=== PATIENT | male | born 1965 | race Caucasian/White ===

== ENCOUNTER 2021-04-03 00:37 | Inpatient (IN) | payer BC, OTHER ==
[~2021-04-03] VITALS: Ht 165.1 cm; Wt 59.9 kg
[~2021-04-03 00:37] MED LIST: IBUP-2437 PO; TAMS-11 PO
[2021-04-03] MEDS ORDERED: METOCLOPRAMIDE HCL 10MG/2ML VIAL IV ONE (01:30)
[2021-04-03] MEDS ORDERED: SODIUM CHLORIDE 0.9% 1000ML BAG (SEPSIS BOLUS) IV ONE (01:30)
[2021-04-03] MEDS ORDERED: PIPERACILLIN/TAZ 3.375G PREMIX 50 ML IV ONE (02:30)
[2021-04-03] MEDS ORDERED: VANCOMYCIN 1 G PREMIX 200 ML IV ONE (02:30)
[2021-04-03 03:10] LABS: CHLORIDE 108 mEq/L (98-107)
[2021-04-03] MEDS ORDERED: NOREPINEPHRINE 8MG/250ML PMX 250 ML IV STA (03:37)
[2021-04-03] MEDS: NOREPINEPHRINE 8 MG in DEXTROSE 5% WATER 250 ML IV PRN ×2 (04:06→18:23)
[2021-04-03 04:47] LABS: BASOPHILS % 0.2 % (0.0-2.0); EOSINOPHILS % 0.3 % (0.0-5.0); LYMPHOCYTES % 12.5 % (20.0-50.0); MEAN CORPUSCULAR HEMOGLOBIN 29.4 pg (28.0-32.0); MEAN CORPUSCULAR VOLUME 93.1 fL (80.0-94.0); MEAN PLATELET VOLUME 7.5 fl (7.4-10.4); MONOCYTES % 11.3 % (2.0-8.0); NEUTROPHILS % 75.7 % (40.0-76.0); PLATELET 109 x1000/uL (130-400); RED BLOOD CELL COUNT 2.22 mill/uL (4.7-6.1); RED CELL DISTRIBUTION WIDTH 21.8 % (11.6-14.6)
[2021-04-03 04:51] LABS: HEMATOCRIT. 20.7 % (42.0-52.0); HEMOGLOBIN. 6.5 g/dL (14.0-18.0)
[2021-04-03 04:57] LABS: INR 1.2; PROTHROMBIN TIME 12.4 sec (9.6-11.0)
[2021-04-03] MEDS ORDERED: IOHEXOL-350 100 ML BOTTLE ONE (06:27)
[2021-04-03] MEDS ORDERED: CLONIDINE 0.1MG TABLET PO PRN (07:30)
[2021-04-03] MEDS ORDERED: MAGNESIUM/ALUMINUM HYDROXIDE/SIMETHICONE 30ML UDC PO PRN (07:30)
[2021-04-03] MEDS ORDERED: GUAIFENESIN 200MG/10ML SUGAR FREE UDC PO PRN (07:30)
[2021-04-03] MEDS ORDERED: KETOROLAC 15MG/ML VIAL IV PRN (07:30)
[2021-04-03] MEDS ORDERED: NITROGLYCERIN 0.4MG TABLET SL SL PRN (07:30)
[2021-04-03] MEDS ORDERED: ACETAMINOPHEN 325MG TABLET PO PRN (07:30)
[2021-04-03] MEDS ORDERED: TRAMADOL 50MG TABLET PO PRN (07:30)
[2021-04-03] MEDS ORDERED: DOCUSATE SODIUM 100MG CAPSULE PO PRN (07:30)
[2021-04-03] MEDS ORDERED: ZOLPIDEM TARTRATE 5MG TABLET PO PRN (07:30)
[2021-04-03] MEDS ORDERED: IPRATROPIUM/ALBUTEROL 0.5-3(2.5)MG/3ML NEB NEB PRN (07:30)
[2021-04-03] MEDS ORDERED: NOREPINEPHRINE 8 MG in DEXT 5% WATER 242 ML IV PRN ×2 (07:30→12:00)
[2021-04-03] MEDS ORDERED: NALOXONE HCL 0.4MG/ML VIAL IV PRN (08:45)
[2021-04-03] MEDS ORDERED: VANCOMYCIN 1 G PREMIX 200 ML IV SCH (09:00)
[2021-04-03] MEDS: MORPHINE SULFATE 2 MG/ML CPJ (NOT FOR IM USE) IV PRN ×3 (09:24→20:01)
[2021-04-03] MEDS: PANTOPRAZOLE SODIUM 40 MG/VIAL IV SCH (09:55)
[2021-04-03] MEDS ORDERED: IPRATROPIUM/ALBUTEROL 0.5-3(2.5)MG/3ML NEB HHN PRN (11:15)
[2021-04-03] MEDS ORDERED: PIPERACILLIN/TAZ 3.375G PREMIX 50 ML IV SCH (14:00)
[2021-04-03 14:13] LABS: HEMATOCRIT 23.5 % (42.0-52.0); HEMOGLOBIN 7.6 g/dL (14.0-18.0)
[2021-04-03 15:55] LABS: CLARITY URINE CLEAR (CLEAR); COLOR URINE YELLOW (YELLOW); KETONES URINE NEGATIVE (NEGATIVE); LEUKOCYTE ESTERASE URINE NEGATIVE (NEGATIVE); NITRITE URINE NEGATIVE (NEGATIVE); OCCULT BLOOD URINE NEGATIVE (NEGATIVE); PH URINE 5.5 (4.5-8.0); PROTEIN URINE NEGATIVE (NEGATIVE); SPECIFIC GRAVITY URINE 1.057 (1.005-1.030); UROBILINOGEN URINE 0.2 E.U./dL (0.2-1.0)
[2021-04-03] MEDS: MEROPENEM 1,000 MG in SODIUM CHLORIDE 0.9% 100 ML IV SCH ×2 (16:27→20:00)
[2021-04-03] MEDS: VANCOMYCIN 1 G PREMIX 200 ML IV SCH (18:00)
[2021-04-03 23:26] LABS: CREATINE KINASE MB FRACTION 3.7 ng/mL (0.5-3.6)
[2021-04-04] MEDS: MORPHINE SULFATE 2 MG/ML CPJ (NOT FOR IM USE) IV PRN ×2 (00:23→04:37)
[2021-04-04] MEDS: MEROPENEM 1,000 MG in SODIUM CHLORIDE 0.9% 100 ML IV SCH ×3 (06:49→20:19)
[2021-04-04] MEDS ORDERED: VECURONIUM BROMIDE 10 MG/VIAL IV ONE ×3 (09:15→12:15)
[2021-04-04] MEDS ORDERED: ETOMIDATE 2MG/ML 10ML VIAL IV ONE ×2 (09:15→10:00)
[2021-04-04] MEDS ORDERED: SODIUM CHLORIDE 0.9% 10ML VIAL ONE (09:15)
[2021-04-04] MEDS ORDERED: MIDAZOLAM 100MG/100ML PREMIX IV PRN (10:00)
[2021-04-04] MEDS ORDERED: MIDAZOLAM HCL 100 MG in DEXT 5% WATER 80 ML IV ONE (10:00)
[2021-04-04 10:25] LABS: BG BASE EXCESS -14.5 mmol/L (-2.0-2.0); BG DEOXYHEMOGLOBIN 0.7 % (0.0-5.0); BG METHEMOGLOBIN 0.7 % (0.0-1.5); BG OXYGEN SATURATION 99.3 % (92.0-98.5); BG OXYHEMOGLOBIN 98.6 % (94.0-97.0); BG PCO2 24.3 mmHg (35.0-45.0); BG PH 7.274 (7.350-7.450); BG PO2 414.3 mmHg (75.0-100.0); BG SAMPLE SITE RIGHT BRACHIAL; BG VENT MODE RESUS BAG
[2021-04-04] MEDS ORDERED: SODIUM BICARBONATE 8.4% 1 MEQ/ML 50ML SYR IV ONE (10:30)
[2021-04-04] MEDS: PANTOPRAZOLE SODIUM 40 MG/VIAL IV SCH (12:20)
[2021-04-04] MEDS: VANCOMYCIN 1 G PREMIX 200 ML IV SCH (12:20)
[2021-04-04] MEDS: DEXT 5%/0.45% NACL 1000ML 1,000 ML IV SCH (12:22)
[2021-04-04 12:30] LABS: BG BASE EXCESS -8.9 mmol/L (-2.0-2.0); BG CARBOXYHEMOGLOBIN 0.3 % (0.5-1.5); BG HCO3 ACT 15.3 mmol/L (22.0-26.0); BG METHEMOGLOBIN 0.6 % (0.0-1.5); BG OXYHEMOGLOBIN 98.1 % (94.0-97.0); BG PCO2 29.9 mmHg (35.0-45.0); BG PH 7.327 (7.350-7.450); BG PO2 151.3 mmHg (75.0-100.0); BG SAMPLE SITE RIGHT BRACHIAL; BG TOTAL HEMOGLOBIN 18.5 g/dL (12.0-18.0); BG VENT MODE VENT - AC
[2021-04-04] MEDS ORDERED: OCTREOTIDE 1,000 MCG in SODIUM CHLORIDE 0.9% 100 ML IV ONE (16:00)
[2021-04-04] MEDS ORDERED: OCTREOTIDE ACETATE 50 MCG/ML 1ML IV ONE (16:00)
[2021-04-04] MEDS: PANTOPRAZOLE 80 MG in SODIUM CHLORIDE 0.9% 100 ML IV SCH ×2 (16:22→23:49)
[2021-04-04 16:43] LABS: BASOPHILS % 0.3 % (0.0-2.0); EOSINOPHILS % 0.3 % (0.0-5.0); HEMATOCRIT. 26.9 % (42.0-52.0); HEMOGLOBIN. 8.4 g/dL (14.0-18.0); LYMPHOCYTES % 16.1 % (20.0-50.0); MEAN CORPUSCULAR VOLUME 93.2 fL (80.0-94.0); MEAN PLATELET VOLUME 7.9 fl (7.4-10.4); MONOCYTES % 10.1 % (2.0-8.0); NEUTROPHILS % 73.2 % (40.0-76.0); RED BLOOD CELL COUNT 2.88 mill/uL (4.7-6.1); RED CELL DISTRIBUTION WIDTH 15.6 % (11.6-14.6)
[2021-04-04 16:47] LABS: CHLORIDE 104 mEq/L (98-107)
[2021-04-04 17:22] LABS: PLATELET 32 x1000/uL (130-400)
[2021-04-05] VITALS (15 sets, daily range): BP systolic 82–114; BP diastolic 40–80
[2021-04-05 01:39] LABS: HEMATOCRIT 26.3 % (42.0-52.0); HEMOGLOBIN 8.9 g/dL (14.0-18.0)
[2021-04-05] MEDS: VANCOMYCIN 1 G PREMIX 200 ML IV SCH (01:45)
[2021-04-05] MEDS: DEXT 5%/0.45% NACL 1000ML 1,000 ML IV SCH ×2 (03:17→16:51)
[2021-04-05] MEDS ORDERED: MIDAZOLAM HCL 100 MG in SODIUM CHLORIDE 0.9% 100 ML IV PRN (04:45)
[2021-04-05] MEDS: MEROPENEM 1,000 MG in SODIUM CHLORIDE 0.9% 100 ML IV SCH (07:19)
[2021-04-05] MEDS: MORPHINE SULFATE 2 MG/ML CPJ (NOT FOR IM USE) IV PRN (08:09)
[2021-04-05 08:29] LABS: BG BASE EXCESS -1.4 mmol/L (-2.0-2.0); BG DEOXYHEMOGLOBIN 1.5 % (0.0-5.0); BG HCO3 ACT 20.8 mmol/L (22.0-26.0); BG METHEMOGLOBIN 0.4 % (0.0-1.5); BG OXYGEN SATURATION 98.5 % (92.0-98.5); BG OXYHEMOGLOBIN 98.1 % (94.0-97.0); BG PCO2 27.8 mmHg (35.0-45.0); BG PH 7.492 (7.350-7.450); BG PO2 137.4 mmHg (75.0-100.0); BG SAMPLE SITE RIGHT RADIAL; BG VENT MODE VENT - AC
[2021-04-05] MEDS ORDERED: SODIUM BICARBONATE 8.4% 1 MEQ/ML 50ML SYR IV NR (09:30)
[2021-04-05] MEDS: PANTOPRAZOLE 80 MG in SODIUM CHLORIDE 0.9% 100 ML IV SCH ×2 (10:00→20:00)
[2021-04-05] MEDS ORDERED: PANTOPRAZOLE SODIUM 40 MG/VIAL IV ONE (10:39)
[2021-04-05] MEDS ORDERED: FENTANYL CITRATE/PF 2,500 MCG in SODIUM CHLORIDE 0.9% 200 ML IV PRN (12:30)
[2021-04-05] MEDS: FENTANYL CITRATE/PF 2,500 MCG in SODIUM CHLORIDE 0.9% 200 ML IV PRN (13:00)
[2021-04-05] MEDS: NOREPINEPHRINE 32 MG in DEXT 5% WATER 218 ML IV PRN (13:10)
[2021-04-05] MEDS ORDERED: VANCOMYCIN 1 G PREMIX 200 ML IV SCH (14:00)
[2021-04-05] MEDS ORDERED: VANCOMYCIN 750 MG PREMIX 150 ML IV SCH ×2 (14:00→22:30)
[2021-04-05 15:56] LABS: HEMATOCRIT 32.5 % (42.0-52.0)
[2021-04-05] MEDS: VASOPRESSIN 20 UNIT in SODIUM CHLORIDE 0.9% 99 ML IV PRN ×2 (16:15→23:04)
[2021-04-06] VITALS (88 sets, daily range): BP systolic 72–128; BP diastolic 46–94
[2021-04-06] MEDS: VASOPRESSIN 20 UNIT in SODIUM CHLORIDE 0.9% 99 ML IV PRN ×3 (02:00→16:21)
[2021-04-06] MEDS: MEROPENEM 1,000 MG in SODIUM CHLORIDE 0.9% 100 ML IV SCH ×4 (02:05→22:19)
[2021-04-06] MEDS: NOREPINEPHRINE 32 MG in DEXT 5% WATER 218 ML IV PRN ×3 (02:27→23:39)
[2021-04-06 02:44] LABS: BG BASE EXCESS -4.7 mmol/L (-2.0-2.0); BG CARBOXYHEMOGLOBIN 0.1 % (0.5-1.5); BG DEOXYHEMOGLOBIN 17.7 % (0.0-5.0); BG FRACTION INSPIRED OXYGEN 80; BG HCO3 ACT 20.1 mmol/L (22.0-26.0); BG METHEMOGLOBIN 0.3 % (0.0-1.5); BG OXYGEN SATURATION 82.2 % (92.0-98.5); BG OXYHEMOGLOBIN 81.9 % (94.0-97.0); BG PCO2 36.3 mmHg (35.0-45.0); BG PH 7.361 (7.350-7.450); BG PO2 49.3 mmHg (75.0-100.0); BG SAMPLE SITE RIGHT FEMORAL; BG TOTAL HEMOGLOBIN 11.9 g/dL (12.0-18.0); BG VENT MODE VENT - AC
[2021-04-06] MEDS ORDERED: MIDAZOLAM HCL 100 MG in SODIUM CHLORIDE 0.9% 80 ML IV PRN (05:45)
[2021-04-06] MEDS: PANTOPRAZOLE 80 MG in SODIUM CHLORIDE 0.9% 100 ML IV SCH ×2 (05:52→16:22)
[2021-04-06 06:14] LABS: BASOPHILS % 0.2 % (0.0-2.0); EOSINOPHILS % 0.1 % (0.0-5.0); HEMATOCRIT. 34.8 % (42.0-52.0); HEMOGLOBIN. 11.5 g/dL (14.0-18.0); LYMPHOCYTES % 15.1 % (20.0-50.0); MEAN CORPUSCULAR HEMOGLOBIN 30.2 pg (28.0-32.0); MEAN CORPUSCULAR VOLUME 91.6 fL (80.0-94.0); MEAN PLATELET VOLUME 9.3 fl (7.4-10.4); MONOCYTES % 7.3 % (2.0-8.0); NEUTROPHILS % 77.3 % (40.0-76.0); PLATELET 67 x1000/uL (130-400); RED CELL DISTRIBUTION WIDTH 15.1 % (11.6-14.6)
[2021-04-06 06:21] LABS: CHLORIDE 97 mEq/L (98-107)
[2021-04-06 06:27] LABS: PHOSPHORUS 4.9 mg/dL (2.5-4.9)
[2021-04-06] MEDS ORDERED: LIDOCAINE HCL 1% 30ML VIAL (10MG/ML) ONE (08:20)
[2021-04-06] MEDS: DEXT 5%/0.45% NACL 1000ML 1,000 ML IV SCH (08:25)
[2021-04-06 08:50] LABS: BG BASE EXCESS -5.1 mmol/L (-2.0-2.0); BG CARBOXYHEMOGLOBIN 0.3 % (0.5-1.5); BG DEOXYHEMOGLOBIN 0.6 % (0.0-5.0); BG FRACTION INSPIRED OXYGEN 100; BG HCO3 ACT 19.1 mmol/L (22.0-26.0); BG METHEMOGLOBIN 0.4 % (0.0-1.5); BG OXYGEN SATURATION 99.4 % (92.0-98.5); BG OXYHEMOGLOBIN 98.7 % (94.0-97.0); BG PCO2 32.9 mmHg (35.0-45.0); BG PH 7.381 (7.350-7.450); BG PO2 320.7 mmHg (75.0-100.0); BG SAMPLE SITE LEFT BRACHIAL; BG TOTAL HEMOGLOBIN 12.4 g/dL (12.0-18.0); BG VENT MODE VENT - AC
[2021-04-06] MEDS ORDERED: SODIUM BICARBONATE 8.4% 1 MEQ/ML 50ML SYR IV NR (09:30)
[2021-04-06] MEDS: DEXT 5%/0.9% NACL 1,000 ML IV SCH (10:52)
[2021-04-06] MEDS ORDERED: SODIUM POLYSTYRENE SULFONATE 15 G/60 ML BOT PO NR (11:00)
[2021-04-06] MEDS: CALCIUM GLUCONATE 1GM PREMIX 100 ML IV SCH ×2 (12:49→22:20)
[2021-04-06] MEDS: FENTANYL CITRATE/PF 2,500 MCG in SODIUM CHLORIDE 0.9% 200 ML IV PRN (12:49)
[2021-04-06] MEDS ORDERED: MAGNESIUM 2 G PREMIX 50 ML IV NR (13:00)
[2021-04-06 16:43] LABS: HEMATOCRIT 35.9 % (42.0-52.0); HEMOGLOBIN 11.8 g/dL (14.0-18.0)
[2021-04-06] MEDS: PHENYLEPHRINE 100 MG in DEXT 5% WATER 240 ML IV PRN (18:10)
[2021-04-06] MEDS: IPRATROPIUM/ALBUTEROL 0.5-3(2.5)MG/3ML NEB HHN SCH (20:43)
[2021-04-07] VITALS (95 sets, daily range): BP systolic 74–121; BP diastolic 48–85
[2021-04-07 00:57] LABS: HEMATOCRIT 33.8 % (42.0-52.0); HEMOGLOBIN 11.1 g/dL (14.0-18.0)
[2021-04-07] MEDS: DEXT 5%/0.9% NACL 1,000 ML IV SCH ×3 (01:15→13:42)
[2021-04-07] MEDS: VASOPRESSIN 20 UNIT in SODIUM CHLORIDE 0.9% 99 ML IV PRN (01:16)
[2021-04-07] MEDS: IPRATROPIUM/ALBUTEROL 0.5-3(2.5)MG/3ML NEB HHN SCH ×4 (02:25→20:29)
[2021-04-07] MEDS: PANTOPRAZOLE 80 MG in SODIUM CHLORIDE 0.9% 100 ML IV SCH ×3 (05:48→22:06)
[2021-04-07] MEDS: MEROPENEM 1,000 MG in SODIUM CHLORIDE 0.9% 100 ML IV SCH ×3 (05:49→22:05)
[2021-04-07] MEDS: VANCOMYCIN 750 MG PREMIX 150 ML IV SCH (05:49)
[2021-04-07 05:59] LABS: BASOPHILS % 0.1 % (0.0-2.0); EOSINOPHILS % 0.5 % (0.0-5.0); HEMATOCRIT. 32.1 % (42.0-52.0); HEMOGLOBIN. 10.8 g/dL (14.0-18.0); LYMPHOCYTES % 12.3 % (20.0-50.0); MEAN CORPUSCULAR HEMOGLOBIN 30.2 pg (28.0-32.0); MEAN CORPUSCULAR VOLUME 89.8 fL (80.0-94.0); MEAN PLATELET VOLUME 8.6 fl (7.4-10.4); MONOCYTES % 9.2 % (2.0-8.0); NEUTROPHILS % 77.9 % (40.0-76.0); PLATELET 61 x1000/uL (130-400); RED BLOOD CELL COUNT 3.57 mill/uL (4.7-6.1); RED CELL DISTRIBUTION WIDTH 14.8 % (11.6-14.6)
[2021-04-07 06:14] LABS: CHLORIDE 101 mEq/L (98-107)
[2021-04-07 06:22] LABS: PHOSPHORUS 3.6 mg/dL (2.5-4.9)
[2021-04-07 08:38] LABS: BG BASE EXCESS -3.7 mmol/L (-2.0-2.0); BG CARBOXYHEMOGLOBIN 0.3 % (0.5-1.5); BG FRACTION INSPIRED OXYGEN 40; BG HCO3 ACT 19.7 mmol/L (22.0-26.0); BG METHEMOGLOBIN 0.3 % (0.0-1.5); BG OXYHEMOGLOBIN 98.4 % (94.0-97.0); BG PCO2 30.6 mmHg (35.0-45.0); BG PH 7.427 (7.350-7.450); BG PO2 165.8 mmHg (75.0-100.0); BG SAMPLE SITE RIGHT RADIAL; BG TOTAL HEMOGLOBIN 11.5 g/dL (12.0-18.0); BG VENT MODE VENT - AC
[2021-04-07] MEDS: CALCIUM GLUCONATE 1GM PREMIX 100 ML IV SCH ×2 (08:47→21:11)
[2021-04-07] MEDS: NOREPINEPHRINE 32 MG in DEXT 5% WATER 218 ML IV PRN (10:35)
[2021-04-07 15:26] LABS: HEMATOCRIT 30.9 % (42.0-52.0); HEMOGLOBIN 10.5 g/dL (14.0-18.0)
[2021-04-07 16:55] LABS: BG BASE EXCESS -4.9 mmol/L (-2.0-2.0); BG CARBOXYHEMOGLOBIN 0.3 % (0.5-1.5); BG DEOXYHEMOGLOBIN 7.7 % (0.0-5.0); BG HCO3 ACT 21.1 mmol/L (22.0-26.0); BG METHEMOGLOBIN 0.2 % (0.0-1.5); BG OXYGEN SATURATION 92.3 % (92.0-98.5); BG OXYHEMOGLOBIN 91.8 % (94.0-97.0); BG PCO2 42.4 mmHg (35.0-45.0); BG PH 7.314 (7.350-7.450); BG PO2 70.9 mmHg (75.0-100.0); BG SAMPLE SITE RIGHT RADIAL; BG TOTAL HEMOGLOBIN 11.5 g/dL (12.0-18.0); BG VENT MODE VENT - SIMV
[2021-04-07] MEDS: PHENYLEPHRINE 100 MG in DEXT 5% WATER 240 ML IV PRN (16:55)
[2021-04-07] MEDS: FENTANYL CITRATE/PF 2,500 MCG in SODIUM CHLORIDE 0.9% 200 ML IV PRN (16:56)
[2021-04-07] MEDS: FLUCONAZOLE 200 MG/100ML BAG 100 ML IV SCH (18:14)
[2021-04-07 23:22] LABS: HEMATOCRIT 32.1 % (42.0-52.0); HEMOGLOBIN 10.5 g/dL (14.0-18.0)
[2021-04-08] VITALS (85 sets, daily range): BP systolic 76–132; BP diastolic 23–102
[2021-04-08] MEDS: IPRATROPIUM/ALBUTEROL 0.5-3(2.5)MG/3ML NEB HHN SCH ×4 (00:28→20:23)
[2021-04-08] MEDS: DEXT 5%/0.9% NACL 1,000 ML IV SCH ×2 (02:02→15:22)
[2021-04-08] MEDS: PHENYLEPHRINE 100 MG in DEXT 5% WATER 240 ML IV PRN ×3 (02:14→21:55)
[2021-04-08] MEDS: MEROPENEM 1,000 MG in SODIUM CHLORIDE 0.9% 100 ML IV SCH ×3 (05:52→22:16)
[2021-04-08] MEDS: VANCOMYCIN 750 MG PREMIX 150 ML IV SCH (05:52)
[2021-04-08 07:16] LABS: BASOPHILS % 0.2 % (0.0-2.0); HEMATOCRIT. 32.5 % (42.0-52.0); HEMOGLOBIN. 10.7 g/dL (14.0-18.0); LYMPHOCYTES % 11.2 % (20.0-50.0); MEAN CORPUSCULAR HEMOGLOBIN 30.2 pg (28.0-32.0); MEAN PLATELET VOLUME 9.1 fl (7.4-10.4); MONOCYTES % 8.4 % (2.0-8.0); NEUTROPHILS % 79.2 % (40.0-76.0); PLATELET 57 x1000/uL (130-400); RED BLOOD CELL COUNT 3.53 mill/uL (4.7-6.1); RED CELL DISTRIBUTION WIDTH 15.3 % (11.6-14.6)
[2021-04-08 07:30] LABS: CHLORIDE 106 mEq/L (98-107)
[2021-04-08 07:42] LABS: PHOSPHORUS 2.6 mg/dL (2.5-4.9)
[2021-04-08] MEDS: NOREPINEPHRINE 32 MG in DEXT 5% WATER 218 ML IV PRN (08:12)
[2021-04-08 08:22] LABS: BG BASE EXCESS -6.1 mmol/L (-2.0-2.0); BG CARBOXYHEMOGLOBIN 0.3 % (0.5-1.5); BG FRACTION INSPIRED OXYGEN 40; BG HCO3 ACT 17.6 mmol/L (22.0-26.0); BG METHEMOGLOBIN 0.4 % (0.0-1.5); BG OXYHEMOGLOBIN 93.3 % (94.0-97.0); BG PCO2 29.2 mmHg (35.0-45.0); BG PH 7.398 (7.350-7.450); BG SAMPLE SITE LEFT BRACHIAL; BG TOTAL HEMOGLOBIN 11.1 g/dL (12.0-18.0); BG VENT MODE VENT - AC
[2021-04-08] MEDS ORDERED: KCL 20MEQ/100ML PREMIX 100 ML IV NR (12:00)
[2021-04-08] MEDS: CALCIUM GLUCONATE 1GM PREMIX 100 ML IV SCH ×2 (12:15→21:44)
[2021-04-08] MEDS: PANTOPRAZOLE 80 MG in SODIUM CHLORIDE 0.9% 100 ML IV SCH ×2 (12:15→21:44)
[2021-04-08 14:38] LABS: HEMATOCRIT 30.8 % (42.0-52.0); HEMOGLOBIN 10.4 g/dL (14.0-18.0)
[2021-04-08] MEDS: LACTULOSE 20G/30ML UDC PO PRN (15:22)
[2021-04-08] MEDS: FLUCONAZOLE 200 MG/100ML BAG 100 ML IV SCH (19:10)
[2021-04-08 23:08] LABS: BG BASE EXCESS -1.9 mmol/L (-2.0-2.0); BG CARBOXYHEMOGLOBIN 0.3 % (0.5-1.5); BG DEOXYHEMOGLOBIN 2.3 % (0.0-5.0); BG FRACTION INSPIRED OXYGEN 40; BG HCO3 ACT 20.8 mmol/L (22.0-26.0); BG METHEMOGLOBIN 0.3 % (0.0-1.5); BG OXYGEN SATURATION 97.7 % (92.0-98.5); BG OXYHEMOGLOBIN 97.1 % (94.0-97.0); BG PCO2 28.8 mmHg (35.0-45.0); BG PH 7.476 (7.350-7.450); BG PO2 104.5 mmHg (75.0-100.0); BG SAMPLE SITE RIGHT RADIAL; BG TOTAL HEMOGLOBIN 10.6 g/dL (12.0-18.0); BG VENT MODE VENT - SIMV
[2021-04-09] VITALS (93 sets, daily range): BP systolic 73–126; BP diastolic 48–88
[2021-04-09] MEDS: IPRATROPIUM/ALBUTEROL 0.5-3(2.5)MG/3ML NEB HHN SCH ×4 (00:12→21:22)
[2021-04-09 01:36] LABS: HEMOGLOBIN 10.1 g/dL (14.0-18.0)
[2021-04-09] MEDS: PANTOPRAZOLE 80 MG in SODIUM CHLORIDE 0.9% 100 ML IV SCH ×2 (04:59→15:19)
[2021-04-09] MEDS: MEROPENEM 1,000 MG in SODIUM CHLORIDE 0.9% 100 ML IV SCH ×3 (06:16→22:08)
[2021-04-09 06:42] LABS: BASOPHILS % 0.1 % (0.0-2.0); EOSINOPHILS % 0.6 % (0.0-5.0); HEMATOCRIT. 29.2 % (42.0-52.0); HEMOGLOBIN. 9.7 g/dL (14.0-18.0); LYMPHOCYTES % 10.9 % (20.0-50.0); MEAN CORPUSCULAR HEMOGLOBIN 30.4 pg (28.0-32.0); MEAN CORPUSCULAR VOLUME 91.2 fL (80.0-94.0); MEAN PLATELET VOLUME 8.9 fl (7.4-10.4); MONOCYTES % 7.9 % (2.0-8.0); NEUTROPHILS % 80.5 % (40.0-76.0); PLATELET 55 x1000/uL (130-400); RED CELL DISTRIBUTION WIDTH 15.8 % (11.6-14.6)
[2021-04-09 07:04] LABS: CHLORIDE 109 mEq/L (98-107)
[2021-04-09 07:10] LABS: PHOSPHORUS 1.6 mg/dL (2.5-4.9)
[2021-04-09 08:02] LABS: BG CARBOXYHEMOGLOBIN 0.3 % (0.5-1.5); BG DEOXYHEMOGLOBIN 1.5 % (0.0-5.0); BG FRACTION INSPIRED OXYGEN 40; BG HCO3 ACT 19.8 mmol/L (22.0-26.0); BG METHEMOGLOBIN 0.5 % (0.0-1.5); BG OXYGEN SATURATION 98.5 % (92.0-98.5); BG OXYHEMOGLOBIN 97.7 % (94.0-97.0); BG PCO2 28.2 mmHg (35.0-45.0); BG PH 7.464 (7.350-7.450); BG PO2 139.9 mmHg (75.0-100.0); BG SAMPLE SITE LEFT RADIAL; BG TOTAL HEMOGLOBIN 10.7 g/dL (12.0-18.0); BG TOTAL RESPIRATORY RATE 15 b/min; BG VENT MODE VENT - SIMV
[2021-04-09] MEDS: PHENYLEPHRINE 100 MG in DEXT 5% WATER 240 ML IV PRN ×2 (08:39→18:28)
[2021-04-09] MEDS: CALCIUM GLUCONATE 1GM PREMIX 100 ML IV SCH ×2 (09:17→21:13)
[2021-04-09] MEDS: DEXT 5%/0.9% NACL 1,000 ML IV SCH (09:49)
[2021-04-09] MEDS: NOREPINEPHRINE 32 MG in DEXT 5% WATER 218 ML IV PRN (10:51)
[2021-04-09] MEDS: LACTULOSE 20G/30ML UDC PO PRN (11:37)
[2021-04-09] MEDS: FENTANYL CITRATE/PF 2,500 MCG in SODIUM CHLORIDE 0.9% 200 ML IV PRN (12:19)
[2021-04-09] MEDS: LACTULOSE 20G/30ML UDC PO SCH ×2 (15:19→21:13)
[2021-04-09] MEDS ORDERED: MAGNESIUM 2 G PREMIX 50 ML IV SCH (16:00)
[2021-04-09] MEDS ORDERED: POTASSIUM PHOS,M-BASIC-D-BASIC 20 MMOL in DEXT 5% WATER 243.3333 ML IV SCH (16:00)
[2021-04-09 17:32] LABS: HEMATOCRIT 29.4 % (42.0-52.0); HEMOGLOBIN 9.9 g/dL (14.0-18.0)
[2021-04-09] MEDS: FLUCONAZOLE 200 MG/100ML BAG 100 ML IV SCH (18:27)
[2021-04-09] MEDS ORDERED: THIAMINE HCL 100 MG in SODIUM CHLORIDE 0.9% 49 ML IV NR (20:00)
[2021-04-09] MEDS: PANTOPRAZOLE SODIUM 40 MG/VIAL IV SCH (21:13)
[2021-04-09 22:56] LABS: HEMATOCRIT 30.6 % (42.0-52.0); HEMOGLOBIN 9.7 g/dL (14.0-18.0)
[2021-04-10] VITALS (90 sets, daily range): BP systolic 60–148; BP diastolic 35–103
[2021-04-10] MEDS: IPRATROPIUM/ALBUTEROL 0.5-3(2.5)MG/3ML NEB HHN SCH ×4 (01:05→21:13)
[2021-04-10] MEDS: LACTULOSE 20G/30ML UDC PO SCH ×6 (01:21→20:00)
[2021-04-10] MEDS: PANTOPRAZOLE 80 MG in SODIUM CHLORIDE 0.9% 100 ML IV SCH (02:14)
[2021-04-10] MEDS: PHENYLEPHRINE 100 MG in DEXT 5% WATER 240 ML IV PRN ×2 (05:46→13:02)
[2021-04-10 06:59] LABS: BASOPHILS % 0.2 % (0.0-2.0); EOSINOPHILS % 2.1 % (0.0-5.0); HEMATOCRIT. 29.1 % (42.0-52.0); HEMOGLOBIN. 9.9 g/dL (14.0-18.0); MEAN CORPUSCULAR HEMOGLOBIN 30.8 pg (28.0-32.0); MEAN CORPUSCULAR VOLUME 91.1 fL (80.0-94.0); MEAN PLATELET VOLUME 8.6 fl (7.4-10.4); MONOCYTES % 8.9 % (2.0-8.0); NEUTROPHILS % 76.8 % (40.0-76.0); PLATELET 68 x1000/uL (130-400); RED CELL DISTRIBUTION WIDTH 16.2 % (11.6-14.6)
[2021-04-10 07:09] LABS: CHLORIDE 112 mEq/L (98-107)
[2021-04-10 07:17] LABS: PHOSPHORUS 2.8 mg/dL (2.5-4.9)
[2021-04-10] MEDS: MEROPENEM 1,000 MG in SODIUM CHLORIDE 0.9% 100 ML IV SCH ×3 (07:32→21:02)
[2021-04-10] MEDS: DEXT 5%/0.9% NACL 1,000 ML IV SCH (07:32)
[2021-04-10 08:32] LABS: BG BASE EXCESS -4.3 mmol/L (-2.0-2.0); BG CARBOXYHEMOGLOBIN 0.3 % (0.5-1.5); BG DEOXYHEMOGLOBIN 1.3 % (0.0-5.0); BG FRACTION INSPIRED OXYGEN 40; BG HCO3 ACT 19.8 mmol/L (22.0-26.0); BG METHEMOGLOBIN 0.4 % (0.0-1.5); BG OXYGEN SATURATION 98.7 % (92.0-98.5); BG PCO2 32.8 mmHg (35.0-45.0); BG PH 7.398 (7.350-7.450); BG PO2 160.4 mmHg (75.0-100.0); BG SAMPLE SITE LEFT RADIAL; BG TOTAL HEMOGLOBIN 10.6 g/dL (12.0-18.0); BG TOTAL RESPIRATORY RATE 12 b/min; BG VENT MODE VENT - SIMV
[2021-04-10] MEDS: FOLIC ACID 1MG TABLET PO SCH (08:40)
[2021-04-10] MEDS: MULTIVITAMINS,THER W-MINERALS TABLET PO SCH (08:40)
[2021-04-10] MEDS: PANTOPRAZOLE SODIUM 40 MG/VIAL IV SCH ×2 (08:41→21:02)
[2021-04-10] MEDS: CALCIUM GLUCONATE 1GM PREMIX 100 ML IV SCH ×2 (08:41→21:01)
[2021-04-10] MEDS: FENTANYL CITRATE/PF 2,500 MCG in SODIUM CHLORIDE 0.9% 200 ML IV PRN (09:19)
[2021-04-10] MEDS ORDERED: POTASSIUM CHLORIDE 20MEQ/PACKET PO NR (10:00)
[2021-04-10 14:40] LABS: BG CARBOXYHEMOGLOBIN 0.3 % (0.5-1.5); BG DEOXYHEMOGLOBIN 1.7 % (0.0-5.0); BG HCO3 ACT 19.1 mmol/L (22.0-26.0); BG METHEMOGLOBIN 0.1 % (0.0-1.5); BG OXYGEN SATURATION 98.3 % (92.0-98.5); BG OXYHEMOGLOBIN 97.9 % (94.0-97.0); BG PCO2 28.5 mmHg (35.0-45.0); BG PH 7.443 (7.350-7.450); BG PO2 121.2 mmHg (75.0-100.0); BG SAMPLE SITE RIGHT RADIAL; BG TOTAL HEMOGLOBIN 10.7 g/dL (12.0-18.0); BG VENT MODE VENT - CPAP
[2021-04-10 15:50] LABS: HEMATOCRIT 29.1 % (42.0-52.0); HEMOGLOBIN 9.7 g/dL (14.0-18.0)
[2021-04-10] MEDS: FLUCONAZOLE 200 MG/100ML BAG 100 ML IV SCH (17:18)
[2021-04-10] MEDS ORDERED: MORPHINE SULFATE 2 MG/ML CPJ (NOT FOR IM USE) IV PRN (17:30)
[2021-04-11] VITALS (96 sets, daily range): BP systolic 82–136; BP diastolic 35–107
[2021-04-11 00:25] LABS: HEMATOCRIT 26.6 % (42.0-52.0)
[2021-04-11] MEDS: IPRATROPIUM/ALBUTEROL 0.5-3(2.5)MG/3ML NEB HHN SCH ×4 (01:39→20:36)
[2021-04-11] MEDS: DEXT 5%/0.9% NACL 1,000 ML IV SCH ×2 (02:00→21:44)
[2021-04-11] MEDS: LACTULOSE 20G/30ML UDC PO SCH ×6 (04:45→20:00)
[2021-04-11] MEDS: PHENYLEPHRINE 100 MG in DEXT 5% WATER 240 ML IV PRN ×3 (04:46→14:26)
[2021-04-11 06:53] LABS: BASOPHILS % 0.1 % (0.0-2.0); EOSINOPHILS % 0.4 % (0.0-5.0); HEMATOCRIT. 26.5 % (42.0-52.0); LYMPHOCYTES % 13.9 % (20.0-50.0); MEAN CORPUSCULAR VOLUME 91.1 fL (80.0-94.0); MEAN PLATELET VOLUME 8.7 fl (7.4-10.4); MONOCYTES % 7.5 % (2.0-8.0); NEUTROPHILS % 78.1 % (40.0-76.0); PLATELET 56 x1000/uL (130-400); RED BLOOD CELL COUNT 2.91 mill/uL (4.7-6.1); RED CELL DISTRIBUTION WIDTH 16.4 % (11.6-14.6)
[2021-04-11 07:09] LABS: CHLORIDE 115 mEq/L (98-107)
[2021-04-11 07:16] LABS: PHOSPHORUS 2.1 mg/dL (2.5-4.9)
[2021-04-11] MEDS: PANTOPRAZOLE SODIUM 40 MG/VIAL IV SCH ×2 (08:24→21:28)
[2021-04-11] MEDS: MULTIVITAMINS,THER W-MINERALS TABLET PO SCH (08:24)
[2021-04-11] MEDS: CALCIUM GLUCONATE 1GM PREMIX 100 ML IV SCH ×2 (08:25→21:28)
[2021-04-11] MEDS: FOLIC ACID 1MG TABLET PO SCH (08:25)
[2021-04-11] MEDS ORDERED: POTASSIUM PHOS,M-BASIC-D-BASIC 15 MMOL in DEXT 5% WATER 245 ML IV SCH (10:00)
[2021-04-11] MEDS: MIDODRINE HCL 5MG TABLET PO SCH ×2 (11:30→18:08)
[2021-04-11] MEDS: TAMSULOSIN HCL 0.4MG SR CAPSULE PO SCH (15:12)
[2021-04-11] MEDS: MORPHINE SULFATE 2 MG/ML CPJ (NOT FOR IM USE) IV PRN ×2 (15:14→21:34)
[2021-04-11 15:15] LABS: HEMATOCRIT 26.2 % (42.0-52.0); HEMOGLOBIN 8.7 g/dL (14.0-18.0)
[2021-04-11] MEDS: FLUCONAZOLE 200 MG/100ML BAG 100 ML IV SCH (18:08)
[2021-04-11 23:29] LABS: HEMOGLOBIN 9.6 g/dL (14.0-18.0)
[2021-04-12] VITALS (95 sets, daily range): BP systolic 64–145; BP diastolic 30–94
[2021-04-12] MEDS: MORPHINE SULFATE 2 MG/ML CPJ (NOT FOR IM USE) IV PRN ×3 (00:48→18:31)
[2021-04-12] MEDS: PHENYLEPHRINE 100 MG in DEXT 5% WATER 240 ML IV PRN ×2 (01:17→11:45)
[2021-04-12] MEDS: IPRATROPIUM/ALBUTEROL 0.5-3(2.5)MG/3ML NEB HHN SCH ×4 (01:43→20:19)
[2021-04-12] MEDS: LACTULOSE 20G/30ML UDC PO SCH ×7 (04:00→23:08)
[2021-04-12 05:40] LABS: HEMATOCRIT 32.5 % (42.0-52.0); HEMOGLOBIN 10.4 g/dL (14.0-18.0)
[2021-04-12] MEDS: CALCIUM GLUCONATE 1GM PREMIX 100 ML IV SCH ×2 (08:32→20:14)
[2021-04-12] MEDS: MULTIVITAMINS,THER W-MINERALS TABLET PO SCH (08:33)
[2021-04-12] MEDS: PANTOPRAZOLE SODIUM 40 MG/VIAL IV SCH ×2 (08:33→20:15)
[2021-04-12] MEDS: TAMSULOSIN HCL 0.4MG SR CAPSULE PO SCH (08:34)
[2021-04-12] MEDS: FOLIC ACID 1MG TABLET PO SCH (08:34)
[2021-04-12] MEDS: MIDODRINE HCL 5MG TABLET PO SCH ×3 (08:34→16:54)
[2021-04-12] MEDS ORDERED: ALBUMIN HUMAN 25GM/100ML (25%) IV NR (09:15)
[2021-04-12 09:49] LABS: CHLORIDE 118 mEq/L (98-107)
[2021-04-12 09:55] LABS: PHOSPHORUS 1.9 mg/dL (2.5-4.9)
[2021-04-12] MEDS ORDERED: IOHEXOL-300 100 ML BOTTLE ONE (12:42)
[2021-04-12] MEDS ORDERED: POTASSIUM-SODIUM PHOSPHATE POWDER PACKET PO NR (13:15)
[2021-04-12 15:08] LABS: HEMATOCRIT 26.7 % (42.0-52.0); HEMOGLOBIN 8.7 g/dL (14.0-18.0)
[2021-04-12] MEDS: DEXT 5%/0.9% NACL 1,000 ML IV SCH (18:31)
[2021-04-12 18:58] LABS: BG BASE EXCESS -7.4 mmol/L (-2.0-2.0); BG CARBOXYHEMOGLOBIN 0.3 % (0.5-1.5); BG DEOXYHEMOGLOBIN 7.6 % (0.0-5.0); BG FRACTION INSPIRED OXYGEN 36; BG METHEMOGLOBIN 0.5 % (0.0-1.5); BG OXYGEN SATURATION 92.3 % (92.0-98.5); BG OXYHEMOGLOBIN 91.6 % (94.0-97.0); BG PCO2 25.6 mmHg (35.0-45.0); BG PH 7.413 (7.350-7.450); BG PO2 65.1 mmHg (75.0-100.0); BG SAMPLE SITE RIGHT RADIAL; BG TOTAL HEMOGLOBIN 9.9 g/dL (12.0-18.0); BG VENT MODE NASAL CANNULA
[2021-04-12] MEDS: FLUCONAZOLE 200 MG/100ML BAG 100 ML IV SCH (19:51)
[2021-04-12] MEDS ORDERED: TRAZODONE HCL 50MG TABLET PO SCH (23:00)
[2021-04-12 23:04] LABS: HEMATOCRIT 28.7 % (42.0-52.0); HEMOGLOBIN 9.3 g/dL (14.0-18.0)
[2021-04-13] VITALS (81 sets, daily range): BP systolic 49–144; BP diastolic 18–102
[2021-04-13] MEDS: MORPHINE SULFATE 2 MG/ML CPJ (NOT FOR IM USE) IV PRN ×4 (00:44→15:40)
[2021-04-13] MEDS: IPRATROPIUM/ALBUTEROL 0.5-3(2.5)MG/3ML NEB HHN SCH ×4 (02:32→20:38)
[2021-04-13] MEDS ORDERED: TRAZODONE HCL 50MG TABLET PO PRN (04:15)
[2021-04-13] MEDS: LACTULOSE 20G/30ML UDC PO SCH ×5 (04:44→20:12)
[2021-04-13] MEDS: PHENYLEPHRINE 100 MG in DEXT 5% WATER 240 ML IV PRN (04:46)
[2021-04-13 05:58] LABS: MEAN CORPUSCULAR HEMOGLOBIN 29.8 pg (28.0-32.0); MEAN CORPUSCULAR VOLUME 92.7 fL (80.0-94.0); MEAN PLATELET VOLUME 8.5 fl (7.4-10.4); RED BLOOD CELL COUNT 3.02 mill/uL (4.7-6.1)
[2021-04-13 06:08] LABS: CHLORIDE 118 mEq/L (98-107)
[2021-04-13 06:16] LABS: PLATELET 41 x1000/uL (130-400)
[2021-04-13] MEDS: FOLIC ACID 1MG TABLET PO SCH (08:57)
[2021-04-13] MEDS: MULTIVITAMINS,THER W-MINERALS TABLET PO SCH (08:58)
[2021-04-13] MEDS: TAMSULOSIN HCL 0.4MG SR CAPSULE PO SCH (08:58)
[2021-04-13] MEDS: CALCIUM GLUCONATE 1GM PREMIX 100 ML IV SCH ×2 (08:58→21:01)
[2021-04-13] MEDS: PANTOPRAZOLE SODIUM 40 MG/VIAL IV SCH ×2 (08:58→20:12)
[2021-04-13] MEDS: MIDODRINE HCL 5MG TABLET PO SCH ×3 (08:58→17:16)
[2021-04-13] MEDS ORDERED: ALBUMIN HUMAN 25GM/100ML (25%) IV SCH (10:30)
[2021-04-13] MEDS ORDERED: FUROSEMIDE 20MG/2ML VIAL IVP NR (13:15)
[2021-04-13] MEDS: DEXT 5%/0.9% NACL 1,000 ML IV SCH (15:36)
[2021-04-13 16:18] LABS: PLATELET ESTIMATE MARKEDLY DECREASED
[2021-04-13] MEDS: LORAZEPAM 1MG TABLET PO PRN (17:49)
[2021-04-14] VITALS (62 sets, daily range): BP systolic 66–130; BP diastolic 24–113
[2021-04-14] MEDS: MORPHINE SULFATE 2 MG/ML CPJ (NOT FOR IM USE) IV PRN ×2 (00:08→09:55)
[2021-04-14] MEDS: LACTULOSE 20G/30ML UDC PO SCH ×6 (00:08→20:37)
[2021-04-14] MEDS: IPRATROPIUM/ALBUTEROL 0.5-3(2.5)MG/3ML NEB HHN SCH ×4 (02:13→21:45)
[2021-04-14 06:21] LABS: CHLORIDE 117 mEq/L (98-107); HEMATOCRIT. 26.6 % (42.0-52.0); HEMOGLOBIN. 8.6 g/dL (14.0-18.0); MEAN CORPUSCULAR HEMOGLOBIN 30.6 pg (28.0-32.0); MEAN CORPUSCULAR VOLUME 94.3 fL (80.0-94.0); MEAN PLATELET VOLUME 10.2 fl (7.4-10.4); RED BLOOD CELL COUNT 2.82 mill/uL (4.7-6.1); RED CELL DISTRIBUTION WIDTH 18.8 % (11.6-14.6)
[2021-04-14 06:48] LABS: PLATELET 34 x1000/uL (130-400)
[2021-04-14] MEDS: CALCIUM GLUCONATE 1GM PREMIX 100 ML IV SCH ×2 (09:29→20:38)
[2021-04-14] MEDS: MIDODRINE HCL 5MG TABLET PO SCH ×3 (09:30→16:55)
[2021-04-14] MEDS: MULTIVITAMINS,THER W-MINERALS TABLET PO SCH (09:30)
[2021-04-14] MEDS: FOLIC ACID 1MG TABLET PO SCH (09:30)
[2021-04-14] MEDS: PANTOPRAZOLE SODIUM 40 MG/VIAL IV SCH ×2 (09:30→20:37)
[2021-04-14] MEDS: TAMSULOSIN HCL 0.4MG SR CAPSULE PO SCH (09:30)
[2021-04-14] MEDS ORDERED: NALOXONE HCL 0.4MG/ML VIAL IV PRN (10:30)
[2021-04-14] MEDS ORDERED: FUROSEMIDE 20MG/2ML VIAL IVP NR (10:30)
[2021-04-14] MEDS: DEXT 5%/0.9% NACL 1,000 ML IV SCH (13:16)
[2021-04-14 17:19] LABS: PLATELET ESTIMATE MARKEDLY DECREASED
[2021-04-14] MEDS: ACETAMINOPHEN 325MG TABLET PO PRN (17:59)
[2021-04-14] MEDS: LORAZEPAM 1MG TABLET PO PRN (19:41)
[2021-04-15] VITALS (13 sets, daily range): BP systolic 80–121; BP diastolic 28–75
[2021-04-15] MEDS: LACTULOSE 20G/30ML UDC PO SCH ×6 (00:32→18:01)
[2021-04-15] MEDS: ACETYLCYSTEINE 100MG/ML 10% VIAL 4ML INH SCH ×4 (01:15→20:50)
[2021-04-15] MEDS: IPRATROPIUM/ALBUTEROL 0.5-3(2.5)MG/3ML NEB HHN SCH ×4 (01:44→20:50)
[2021-04-15] MEDS: DEXT 5%/0.9% NACL 1,000 ML IV SCH (06:50)
[2021-04-15] MEDS: PANTOPRAZOLE SODIUM 40 MG/VIAL IV SCH ×2 (10:03→21:20)
[2021-04-15] MEDS: MIDODRINE HCL 5MG TABLET PO SCH ×3 (10:05→18:01)
[2021-04-15] MEDS: FOLIC ACID 1MG TABLET PO SCH (10:05)
[2021-04-15] MEDS: MULTIVITAMINS,THER W-MINERALS TABLET PO SCH (10:06)
[2021-04-15] MEDS: TAMSULOSIN HCL 0.4MG SR CAPSULE PO SCH (10:08)
[2021-04-15] MEDS: CALCIUM GLUCONATE 1GM PREMIX 100 ML IV SCH ×2 (12:29→21:19)
[2021-04-15] MEDS: MORPHINE SULFATE 2 MG/ML CPJ (NOT FOR IM USE) IV PRN (12:32)
[2021-04-15 12:40] LABS: CHLORIDE 122 mEq/L (98-107)
[2021-04-15 13:56] LABS: BASOPHILS % 0.2 % (0.0-2.0); EOSINOPHILS % 0.6 % (0.0-5.0); HEMATOCRIT. 31.8 % (42.0-52.0); HEMOGLOBIN. 9.7 g/dL (14.0-18.0); LYMPHOCYTES % 7.2 % (20.0-50.0); MEAN CORPUSCULAR HEMOGLOBIN 30.2 pg (28.0-32.0); MEAN CORPUSCULAR VOLUME 98.8 fL (80.0-94.0); MEAN PLATELET VOLUME 10.6 fl (7.4-10.4); MONOCYTES % 2.4 % (2.0-8.0); NEUTROPHILS % 89.6 % (40.0-76.0); RED BLOOD CELL COUNT 3.22 mill/uL (4.7-6.1)
[2021-04-15 14:36] LABS: PLATELET 39 x1000/uL (130-400)
[2021-04-16] VITALS (10 sets, daily range): BP systolic 90–123; BP diastolic 60–68
[2021-04-16] MEDS: LACTULOSE 20G/30ML UDC PO SCH ×6 (00:32→20:00)
[2021-04-16] MEDS: IPRATROPIUM/ALBUTEROL 0.5-3(2.5)MG/3ML NEB HHN SCH ×4 (00:50→20:25)
[2021-04-16] MEDS: DEXT 5%/0.9% NACL 1,000 ML IV SCH (04:52)
[2021-04-16 06:58] LABS: CHLORIDE 121 mEq/L (98-107)
[2021-04-16] MEDS: ACETYLCYSTEINE 100MG/ML 10% VIAL 4ML INH SCH ×2 (08:12→12:55)
[2021-04-16] MEDS: FOLIC ACID 1MG TABLET PO SCH (09:55)
[2021-04-16] MEDS: TAMSULOSIN HCL 0.4MG SR CAPSULE PO SCH (09:56)
[2021-04-16] MEDS: MULTIVITAMINS,THER W-MINERALS TABLET PO SCH (09:56)
[2021-04-16] MEDS: MIDODRINE HCL 5MG TABLET PO SCH ×3 (09:58→18:05)
[2021-04-16] MEDS: DEXT 5%/0.45% NACL 1000ML 1,000 ML IV SCH (09:59)
[2021-04-16] MEDS: PANTOPRAZOLE SODIUM 40 MG/VIAL IV SCH ×2 (10:00→22:21)
[2021-04-16] MEDS: CALCIUM GLUCONATE 1GM PREMIX 100 ML IV SCH ×2 (10:01→22:20)
[2021-04-16] MEDS: MORPHINE SULFATE 2 MG/ML CPJ (NOT FOR IM USE) IV PRN ×2 (10:03→18:45)
[2021-04-16] MEDS: GUAIFENESIN 200MG/10ML SUGAR FREE UDC PO SCH (18:05)
[2021-04-17] VITALS (12 sets, daily range): BP systolic 92–117; BP diastolic 49–68
[2021-04-17] MEDS: ACETYLCYSTEINE 100MG/ML 10% VIAL 4ML INH SCH ×3 (00:33→13:29)
[2021-04-17] MEDS: IPRATROPIUM/ALBUTEROL 0.5-3(2.5)MG/3ML NEB HHN SCH ×5 (00:33→21:13)
[2021-04-17] MEDS: GUAIFENESIN 200MG/10ML SUGAR FREE UDC PO SCH ×5 (00:36→23:13)
[2021-04-17] MEDS: LACTULOSE 20G/30ML UDC PO SCH ×7 (04:00→23:13)
[2021-04-17] MEDS: MORPHINE SULFATE 2 MG/ML CPJ (NOT FOR IM USE) IV PRN ×4 (05:17→20:58)
[2021-04-17] MEDS: DEXT 5%/0.45% NACL 1000ML 1,000 ML IV SCH (05:20)
[2021-04-17 06:50] LABS: CHLORIDE 121 mEq/L (98-107)
[2021-04-17 06:52] LABS: BASOPHILS % 0.2 % (0.0-2.0); EOSINOPHILS % 1.9 % (0.0-5.0); HEMATOCRIT. 27.9 % (42.0-52.0); LYMPHOCYTES % 13.5 % (20.0-50.0); MEAN CORPUSCULAR HEMOGLOBIN 30.8 pg (28.0-32.0); MEAN CORPUSCULAR VOLUME 95.4 fL (80.0-94.0); MEAN PLATELET VOLUME 10.2 fl (7.4-10.4); MONOCYTES % 3.5 % (2.0-8.0); NEUTROPHILS % 80.9 % (40.0-76.0); RED BLOOD CELL COUNT 2.92 mill/uL (4.7-6.1); RED CELL DISTRIBUTION WIDTH 19.6 % (11.6-14.6)
[2021-04-17 06:59] LABS: PLATELET 31 x1000/uL (130-400)
[2021-04-17] MEDS: CALCIUM GLUCONATE 1GM PREMIX 100 ML IV SCH ×2 (08:55→20:55)
[2021-04-17] MEDS: PANTOPRAZOLE SODIUM 40 MG/VIAL IV SCH ×2 (08:56→20:55)
[2021-04-17] MEDS: ZINC SULFATE 220 MG ( 50 ) CAPSULE PO SCH (08:57)
[2021-04-17] MEDS: MIDODRINE HCL 5MG TABLET PO SCH ×3 (08:57→17:23)
[2021-04-17] MEDS: ASCORBIC ACID 500 MG TABLET PO SCH (08:57)
[2021-04-17] MEDS: ACETAMINOPHEN 325MG TABLET PO PRN (08:59)
[2021-04-17] MEDS: MULTIVITAMINS,THER W-MINERALS TABLET PO SCH (09:00)
[2021-04-17] MEDS: TAMSULOSIN HCL 0.4MG SR CAPSULE PO SCH (09:00)
[2021-04-17] MEDS: FOLIC ACID 1MG TABLET PO SCH (09:00)
[2021-04-17 11:27] LABS: PLATELET ESTIMATE MARKEDLY DECREASED
[2021-04-18] VITALS (8 sets, daily range): BP systolic 90–137; BP diastolic 42–68
[2021-04-18] MEDS: IPRATROPIUM/ALBUTEROL 0.5-3(2.5)MG/3ML NEB HHN SCH ×4 (00:43→21:04)
[2021-04-18] MEDS: ACETYLCYSTEINE 100MG/ML 10% VIAL 4ML INH SCH ×3 (00:44→15:09)
[2021-04-18] MEDS: MORPHINE SULFATE 2 MG/ML CPJ (NOT FOR IM USE) IV PRN ×5 (01:19→23:30)
[2021-04-18] MEDS: DEXT 5%/0.45% NACL 1000ML 1,000 ML IV SCH ×2 (01:20→23:27)
[2021-04-18] MEDS: LACTULOSE 20G/30ML UDC PO SCH ×6 (04:00→23:21)
[2021-04-18] MEDS: GUAIFENESIN 200MG/10ML SUGAR FREE UDC PO SCH ×4 (05:47→23:21)
[2021-04-18 06:14] LABS: BASOPHILS % 0.5 % (0.0-2.0); EOSINOPHILS % 4.1 % (0.0-5.0); HEMATOCRIT. 28.6 % (42.0-52.0); HEMOGLOBIN. 9.1 g/dL (14.0-18.0); LYMPHOCYTES % 16.1 % (20.0-50.0); MEAN CORPUSCULAR HEMOGLOBIN 30.5 pg (28.0-32.0); MEAN CORPUSCULAR VOLUME 95.4 fL (80.0-94.0); MEAN PLATELET VOLUME 10.5 fl (7.4-10.4); MONOCYTES % 5.2 % (2.0-8.0); NEUTROPHILS % 74.1 % (40.0-76.0); RED CELL DISTRIBUTION WIDTH 19.5 % (11.6-14.6)
[2021-04-18 06:36] LABS: PLATELET 29 x1000/uL (130-400)
[2021-04-18 06:47] LABS: CHLORIDE 117 mEq/L (98-107)
[2021-04-18] MEDS: TAMSULOSIN HCL 0.4MG SR CAPSULE PO SCH (08:23)
[2021-04-18] MEDS: MULTIVITAMINS,THER W-MINERALS TABLET PO SCH (08:23)
[2021-04-18] MEDS: ZINC SULFATE 220 MG ( 50 ) CAPSULE PO SCH (08:23)
[2021-04-18] MEDS: FOLIC ACID 1MG TABLET PO SCH (08:23)
[2021-04-18] MEDS: MIDODRINE HCL 5MG TABLET PO SCH ×3 (08:24→17:02)
[2021-04-18] MEDS: ASCORBIC ACID 500 MG TABLET PO SCH (08:25)
[2021-04-18] MEDS: PANTOPRAZOLE SODIUM 40 MG/VIAL IV SCH ×2 (08:25→20:51)
[2021-04-18] MEDS: CALCIUM GLUCONATE 1GM PREMIX 100 ML IV SCH ×2 (08:34→20:52)
[2021-04-19] VITALS: BP 107/54
[2021-04-19] MEDS: ACETYLCYSTEINE 100MG/ML 10% VIAL 4ML INH SCH ×3 (02:23→14:20)
[2021-04-19] MEDS: IPRATROPIUM/ALBUTEROL 0.5-3(2.5)MG/3ML NEB HHN SCH ×4 (02:25→20:50)
[2021-04-19 04:00] VITALS: BP 89/49
[2021-04-19] MEDS: LACTULOSE 20G/30ML UDC PO SCH ×5 (04:00→20:00)
[2021-04-19] MEDS: GUAIFENESIN 200MG/10ML SUGAR FREE UDC PO SCH ×2 (05:20→12:00)
[2021-04-19 08:00] VITALS: BP 80/55
[2021-04-19] MEDS: MULTIVITAMINS,THER W-MINERALS TABLET PO SCH (08:44)
[2021-04-19] MEDS: ZINC SULFATE 220 MG ( 50 ) CAPSULE PO SCH (08:46)
[2021-04-19] MEDS: MIDODRINE HCL 5MG TABLET PO SCH ×3 (08:51→16:52)
[2021-04-19] MEDS: PANTOPRAZOLE SODIUM 40 MG/VIAL IV SCH ×2 (08:51→20:29)
[2021-04-19] MEDS: CALCIUM GLUCONATE 1GM PREMIX 100 ML IV SCH ×2 (08:54→20:29)
[2021-04-19] MEDS: FOLIC ACID 1MG TABLET PO SCH (09:36)
[2021-04-19] MEDS: ASCORBIC ACID 500 MG TABLET PO SCH (09:36)
[2021-04-19] MEDS: TAMSULOSIN HCL 0.4MG SR CAPSULE PO SCH (09:38)
[2021-04-19 12:00] VITALS: BP 100/60
[2021-04-19] MEDS: MORPHINE SULFATE 2 MG/ML CPJ (NOT FOR IM USE) IV PRN ×2 (12:35→20:28)
[2021-04-19 16:00] VITALS: BP 106/59
[2021-04-19] MEDS ORDERED: GUAIFENESIN 200MG/10ML SUGAR FREE UDC PO PRN (16:30)
[2021-04-19] MEDS: DEXT 5%/0.45% NACL 1000ML 1,000 ML IV SCH (17:48)
[2021-04-19 20:00] VITALS: BP 111/63
[2021-04-20] VITALS: BP 113/60
[2021-04-20] MEDS: IPRATROPIUM/ALBUTEROL 0.5-3(2.5)MG/3ML NEB HHN SCH ×4 (01:50→21:06)
[2021-04-20 04:00] VITALS: BP 124/73
[2021-04-20] MEDS: LACTULOSE 20G/30ML UDC PO SCH ×7 (04:00→23:07)
[2021-04-20 08:00] VITALS: BP 106/60
[2021-04-20] MEDS: MORPHINE SULFATE 2 MG/ML CPJ (NOT FOR IM USE) IV PRN ×3 (08:49→20:18)
[2021-04-20] MEDS: PANTOPRAZOLE SODIUM 40 MG/VIAL IV SCH ×2 (08:52→20:16)
[2021-04-20] MEDS: MULTIVITAMINS,THER W-MINERALS TABLET PO SCH (08:53)
[2021-04-20] MEDS: ASCORBIC ACID 500 MG TABLET PO SCH (08:53)
[2021-04-20] MEDS: TAMSULOSIN HCL 0.4MG SR CAPSULE PO SCH (08:53)
[2021-04-20] MEDS: FOLIC ACID 1MG TABLET PO SCH (08:53)
[2021-04-20] MEDS: ZINC SULFATE 220 MG ( 50 ) CAPSULE PO SCH (08:53)
[2021-04-20] MEDS: MIDODRINE HCL 5MG TABLET PO SCH ×3 (08:54→17:00)
[2021-04-20] MEDS: CALCIUM GLUCONATE 1GM PREMIX 100 ML IV SCH ×2 (09:07→20:18)
[2021-04-20 12:00] VITALS: BP 100/66
[2021-04-20] MEDS: DEXT 5%/0.45% NACL 1000ML 1,000 ML IV SCH (13:30)
[2021-04-20] MEDS: HYDROCODONE/ACETAMINOPHEN 10/325MG TABLET PO PRN (14:38)
[2021-04-20] MEDS: LIDOCAINE 5% PATCH TOP SCH (15:36)
[2021-04-20 16:00] VITALS: BP 101/63
[2021-04-20 20:00] VITALS: BP 110/76
[2021-04-21] VITALS: BP 92/62
[2021-04-21] MEDS: IPRATROPIUM/ALBUTEROL 0.5-3(2.5)MG/3ML NEB HHN SCH ×4 (01:33→21:28)
[2021-04-21] MEDS: MORPHINE SULFATE 2 MG/ML CPJ (NOT FOR IM USE) IV PRN (02:16)
[2021-04-21 04:00] VITALS: BP 87/59
[2021-04-21] MEDS: LACTULOSE 20G/30ML UDC PO SCH ×5 (04:00→20:00)
[2021-04-21 05:50] LABS: CHLORIDE 110 mEq/L (98-107)
[2021-04-21] MEDS: HYDROCODONE/ACETAMINOPHEN 10/325MG TABLET PO PRN (06:30)
[2021-04-21 06:36] LABS: BASOPHILS % 0.5 % (0.0-2.0); EOSINOPHILS % 1.4 % (0.0-5.0); HEMATOCRIT. 31.6 % (42.0-52.0); HEMOGLOBIN. 9.9 g/dL (14.0-18.0); LYMPHOCYTES % 18.1 % (20.0-50.0); MEAN CORPUSCULAR HEMOGLOBIN 30.2 pg (28.0-32.0); MEAN CORPUSCULAR VOLUME 96.7 fL (80.0-94.0); MEAN PLATELET VOLUME 9.8 fl (7.4-10.4); MONOCYTES % 8.7 % (2.0-8.0); NEUTROPHILS % 71.3 % (40.0-76.0); RED BLOOD CELL COUNT 3.27 mill/uL (4.7-6.1); RED CELL DISTRIBUTION WIDTH 19.5 % (11.6-14.6)
[2021-04-21 08:00] VITALS: BP 94/66
[2021-04-21] MEDS: CALCIUM GLUCONATE 1GM PREMIX 100 ML IV SCH ×2 (08:11→21:47)
[2021-04-21] MEDS: ZINC SULFATE 220 MG ( 50 ) CAPSULE PO SCH (08:11)
[2021-04-21] MEDS: PANTOPRAZOLE SODIUM 40 MG/VIAL IV SCH ×2 (08:11→21:47)
[2021-04-21] MEDS: FOLIC ACID 1MG TABLET PO SCH (08:11)
[2021-04-21] MEDS: MULTIVITAMINS,THER W-MINERALS TABLET PO SCH (08:12)
[2021-04-21] MEDS: ASCORBIC ACID 500 MG TABLET PO SCH (08:12)
[2021-04-21] MEDS: MIDODRINE HCL 5MG TABLET PO SCH ×3 (08:12→16:18)
[2021-04-21] MEDS: LIDOCAINE 5% PATCH TOP SCH (08:13)
[2021-04-21] MEDS: TAMSULOSIN HCL 0.4MG SR CAPSULE PO SCH (08:13)
[2021-04-21] MEDS: DEXT 5%/0.45% NACL 1000ML 1,000 ML IV SCH (08:31)
[2021-04-21 10:20] LABS: PLATELET ESTIMATE MARKEDLY DECREASED
[2021-04-21 10:28] LABS: PLATELET 41 x1000/uL (130-400)
[2021-04-21] MEDS: ONDANSETRON HCL 4MG/2ML INJ IV PRN (10:59)
[2021-04-21 12:00] VITALS: BP 95/63
[2021-04-21 16:00] VITALS: BP 90/68
[2021-04-21] MEDS: HYDROCODONE/ACETAMINOPHEN 5/325MG TABLET PO PRN (16:54)
[2021-04-21 20:00] VITALS: BP 95/49
[2021-04-22] VITALS (7 sets, daily range): BP systolic 96–114; BP diastolic 51–74
[2021-04-22] MEDS: HYDROCODONE/ACETAMINOPHEN 5/325MG TABLET PO PRN ×2 (01:10→09:19)
[2021-04-22] MEDS: IPRATROPIUM/ALBUTEROL 0.5-3(2.5)MG/3ML NEB HHN SCH ×3 (01:50→14:27)
[2021-04-22] MEDS: LACTULOSE 20G/30ML UDC PO SCH ×5 (04:00→16:00)
[2021-04-22] MEDS: DEXT 5%/0.45% NACL 1000ML 1,000 ML IV SCH (05:14)
[2021-04-22] MEDS: ONDANSETRON HCL 4MG/2ML INJ IV PRN (05:14)
[2021-04-22] MEDS: MORPHINE SULFATE 2 MG/ML CPJ (NOT FOR IM USE) IV PRN (05:30)
[2021-04-22 06:23] LABS: BASOPHILS % 0.7 % (0.0-2.0); EOSINOPHILS % 1.7 % (0.0-5.0); HEMATOCRIT. 30.5 % (42.0-52.0); HEMOGLOBIN. 9.6 g/dL (14.0-18.0); LYMPHOCYTES % 18.9 % (20.0-50.0); MEAN CORPUSCULAR HEMOGLOBIN 30.6 pg (28.0-32.0); MEAN CORPUSCULAR VOLUME 96.7 fL (80.0-94.0); MEAN PLATELET VOLUME 9.4 fl (7.4-10.4); MONOCYTES % 6.8 % (2.0-8.0); NEUTROPHILS % 71.9 % (40.0-76.0); RED BLOOD CELL COUNT 3.15 mill/uL (4.7-6.1); RED CELL DISTRIBUTION WIDTH 19.4 % (11.6-14.6)
[2021-04-22 06:38] LABS: CHLORIDE 108 mEq/L (98-107)
[2021-04-22 06:41] LABS: PLATELET 41 x1000/uL (130-400)
[2021-04-22] MEDS: PANTOPRAZOLE SODIUM 40 MG/VIAL IV SCH (08:25)
[2021-04-22] MEDS: ASCORBIC ACID 500 MG TABLET PO SCH (08:25)
[2021-04-22] MEDS: CALCIUM GLUCONATE 1GM PREMIX 100 ML IV SCH (08:25)
[2021-04-22] MEDS: LIDOCAINE 5% PATCH TOP SCH (08:26)
[2021-04-22] MEDS: MULTIVITAMINS,THER W-MINERALS TABLET PO SCH (08:26)
[2021-04-22] MEDS: MIDODRINE HCL 5MG TABLET PO SCH ×3 (08:26→16:29)
[2021-04-22] MEDS: TAMSULOSIN HCL 0.4MG SR CAPSULE PO SCH (08:27)
[2021-04-22] MEDS: FOLIC ACID 1MG TABLET PO SCH (08:35)
[2021-04-22] MEDS: ZINC SULFATE 220 MG ( 50 ) CAPSULE PO SCH (08:35)
== END 2021-04-22 20:58 | DRG 870 ==
LOC: ER 00:37 → MICUSO 04:33 → CVICU 04-04 07:21 → MICUSO 04-04 07:36 → CVICU 04-05 19:08 → 5EST 04-14 15:52 → 8WST 04-22 12:23
PROVIDERS: ADMIT Internal Medicine; ATTEND Internal Medicine
PROC: 30233N1 Transfusion of Nonautologous Red Blood Cells into Peripheral Vein, Percutaneous Approach (ICD-10-PCS; 2021-04-03)
PROC: 5A1955Z Respiratory Ventilation, Greater than 96 Consecutive Hours (ICD-10-PCS; principal; 2021-04-04)
PROC: 0BH17EZ Insertion of Endotracheal Airway into Trachea, Via Natural or Artificial Opening (ICD-10-PCS; 2021-04-04)
PROC: 30233K1 Transfusion of Nonautologous Frozen Plasma into Peripheral Vein, Percutaneous Approach (ICD-10-PCS; 2021-04-04)
PROC: 5A12012 Performance of Cardiac Output, Single, Manual (ICD-10-PCS; 2021-04-04)
PROC: 02HV33Z Insertion of Infusion Device into Superior Vena Cava, Percutaneous Approach (ICD-10-PCS; 2021-04-06)
PROC: B548ZZA Ultrasonography of Superior Vena Cava, Guidance (ICD-10-PCS; 2021-04-06)
DX: A41.9 Sepsis, unspecified organism (principal); E43 Unspecified severe protein-calorie malnutrition; R65.21 Severe sepsis with septic shock; J96.01 Acute respiratory failure with hypoxia; R57.1 Hypovolemic shock; R57.8 Other shock; G93.41 Metabolic encephalopathy; B37.1 Pulmonary candidiasis; I50.21 Acute systolic (congestive) heart failure; C64.9 Malignant neoplasm of unspecified kidney, except renal pelvis; D62 Acute posthemorrhagic anemia; N17.9 Acute kidney failure, unspecified; E87.1 Hypo-osmolality and hyponatremia; R18.8 Other ascites; C78.7 Secondary malignant neoplasm of liver and intrahepatic bile duct; C19 Malignant neoplasm of rectosigmoid junction; K92.1 Melena; J90 Pleural effusion, not elsewhere classified; I82.413 Acute embolism and thrombosis of femoral vein, bilateral; R16.0 Hepatomegaly, not elsewhere classified; D63.8 Anemia in other chronic diseases classified elsewhere; D69.6 Thrombocytopenia, unspecified; E83.51 Hypocalcemia; E87.5 Hyperkalemia; E83.42 Hypomagnesemia; E86.1 Hypovolemia; E87.6 Hypokalemia; E83.39 Other disorders of phosphorus metabolism; K29.50 Unspecified chronic gastritis without bleeding; K31.89 Other diseases of stomach and duodenum; Z82.49 Family history of ischemic heart disease and other diseases of the circulatory system; Z85.038 Personal history of other malignant neoplasm of large intestine; Z85.05 Personal history of malignant neoplasm of liver; Z92.21 Personal history of antineoplastic chemotherapy; Z85.048 Personal history of other malignant neoplasm of rectum, rectosigmoid junction, and anus; Z86.718 Personal history of other venous thrombosis and embolism; Z51.5 Encounter for palliative care; S30.0XXA Contusion of lower back and pelvis, initial encounter
CPT/HCPCS: 36415; 36600; 71045; 71275; 74176; 74177; 76700; 76770; 76937; 80048; 80053; 80076; 80202; 81003; 82040; 82140; 82248; 82270; 82330; 82375; 82378; 82553; 82805; 82962; 83605; 83735; 84100; 84134; 84145; 84443; 84484; 85014; 85018; 85025; 86850; 86900; 86920; 86927; 87070; 87106; 92610; 93005; 93306; 93970; 94002; 94003; 94640; 97161; 99291; A6261; C1725; C9113; J0610; J1450; J1885; J1940; J2185; J2250; J2270; J2354; J2370; J2405; J2543; J2765; J3010; J3370; J3411; J3475; J3480; J3490; J7030; J7042; J7050; J7060; J7608; P9016; P9017; P9021; P9047; Q9967; A4315